=== PATIENT | male | born 1965 | race Caucasian/White ===

== ENCOUNTER → 2022-07-28 | Outpatient (CLI) | payer MEDICARE ==
--- NOTE | 2022-07-28 17:30 | Diagnostic Imaging Report ---
EXAMINATION: Left shoulder 2 or more views HISTORY: Shoulder pain COMPARISON: None available. FINDINGS: The alignment is normal. No fracture is seen. The acromioclavicular and glenohumeral joint spaces are normal. IMPRESSION: 1. No fracture. Dictated by: Dictated on workstation # [id number]
== END ==
LOC: RAD 14:57
PROVIDERS: ATTEND Family Medicine
DX: M25.512 Pain in left shoulder (principal)
CPT/HCPCS: 73030

== ENCOUNTER 2022-09-13 09:45 | Outpatient (RCR) | payer MEDICARE | END 2022-09-20 | disposition home or self-care (01) | PROVIDERS: ATTEND Family Medicine | DX: M25.512 Pain in left shoulder (principal); I10 Essential (primary) hypertension ==

== ENCOUNTER 2022-09-23 10:30 | Outpatient (RCR) | payer MEDICARE | END 2022-10-12 11:05 | disposition home or self-care (01) | PROVIDERS: ATTEND Family Medicine | DX: M25.512 Pain in left shoulder (principal); I10 Essential (primary) hypertension; E11.9 Type 2 diabetes mellitus without complications; Z79.4 Long term (current) use of insulin ==

== ENCOUNTER → 2022-12-15 | Outpatient (CLI) | payer MEDICARE ==
[2022-12-15 14:56] LABS: BASOPHILS # (AUTO) 0.1 10^3/uL (0.0-0.1); BASOPHILS % (AUTO) 1 % (0-10); EOSINOPHILS # (AUTO) 0.1 10^3/uL (0.0-0.3); EOSINOPHILS % (AUTO) 1 % (0-10); HEMATOCRIT 41 % (40-54); HEMOGLOBIN 13.5 g/dL (13.3-17.7); LYMPHOCYTES # (AUTO) 1.9 10^3/uL (1.0-4.0); LYMPHOCYTES % (AUTO) 20 % (12-44); MEAN CORPUSCULAR HEMOGLOBIN 29 pg (25-34); MEAN CORPUSCULAR HGB CONC 33 g/dL (32-36); MEAN CORPUSCULAR VOLUME 88 fL (80-99); MEAN PLATELET VOLUME 10.7 fL (9.0-12.2); MONOCYTES # (AUTO) 0.7 10^3/uL (0.0-1.0); MONOCYTES % (AUTO) 8 % (0-12); NEUTROPHILS # (AUTO) 6.5 10^3/uL (1.8-7.8); NEUTROPHILS % (AUTO) 70 % (42-75); PLATELET COUNT 247 10^3/uL (130-400); WHITE BLOOD COUNT 9.3 10^3/uL (4.3-11.0)
[2022-12-15 14:59] LABS: POTASSIUM 4.2 MMOL/L (3.6-5.0)
[2022-12-15 15:01] LABS: CALCIUM 8.8 MG/DL (8.5-10.1)
[2022-12-15 15:05] LABS: CREATININE SERUM 1.04 MG/DL (0.60-1.30)
[2022-12-15 16:02] LABS: ERYTHROCYTE SEDIMENTATION RATE 34 MM/HR (0-30)
== END ==
LOC: WOUNDCARE 13:13
PROVIDERS: ATTEND Family Medicine
DX: T87.89 Other complications of amputation stump (principal); L97.222 Non-pressure chronic ulcer of left calf with fat layer exposed; L97.512 Non-pressure chronic ulcer of other part of right foot with fat layer exposed; E11.621 Type 2 diabetes mellitus with foot ulcer; E11.622 Type 2 diabetes mellitus with other skin ulcer; E11.65 Type 2 diabetes mellitus with hyperglycemia; E66.01 Morbid (severe) obesity due to excess calories; L03.031 Cellulitis of right toe; E11.52 Type 2 diabetes mellitus with diabetic peripheral angiopathy with gangrene; Z68.41 Body mass index [BMI] 40.0-44.9, adult
CPT/HCPCS: 11042; 80048; 84134; 85025; 85652; 86141; 87070; 87077; 87185; 87186; 87205; A6197; A6212; G0463; 36415

== ENCOUNTER → 2022-12-22 | Outpatient (CLI) | payer MEDICARE | LOC: WOUNDCARE 13:30 | PROVIDERS: ATTEND Family Medicine | DX: I96 Gangrene, not elsewhere classified (principal); T87.89 Other complications of amputation stump; L97.222 Non-pressure chronic ulcer of left calf with fat layer exposed; L97.512 Non-pressure chronic ulcer of other part of right foot with fat layer exposed; E11.621 Type 2 diabetes mellitus with foot ulcer; E11.622 Type 2 diabetes mellitus with other skin ulcer; E11.65 Type 2 diabetes mellitus with hyperglycemia; E66.01 Morbid (severe) obesity due to excess calories; Z68.41 Body mass index [BMI] 40.0-44.9, adult | CPT/HCPCS: 11042; G0463 ==

== ENCOUNTER → 2022-12-27 | Outpatient (CLI) | payer MEDICARE ==
[~2022-12-27] MED LIST: GADOTERATE 0.5 MMOL/ML (CLARISCAN) 20 ML VIAL IV ONE
--- NOTE | 2022-12-27 15:00 | Diagnostic Imaging Report ---
PROCEDURE: MR imaging right lower extremity with and without contrast. TECHNIQUE: Multiplanar, multisequence pre and post contrast-enhanced MR imaging of the right lower extremity was accomplished. INDICATION: Diabetic ulcer of the right great toe. COMPARISON: None. FINDINGS: There is enhancing bone marrow edema of the right great toe distal phalanx. There may be mild T1-weighted hypointensity at the plantar aspect of the tuft. There is enhancing edema about the great toe, particularly plantar to the interphalangeal joint with a soft tissue defect in this location. No rim-enhancing fluid collection is seen. No acute fracture is seen in the imaged right foot. Alignment otherwise appears normal. No joint effusion is seen. There is nonspecific subcutaneous edema at the dorsal forefoot. There is marked generalized muscular atrophy, likely neurogenic. Flexor and extensor tendons appear intact. IMPRESSION: 1. Soft tissue infection and ulceration plantar to the right great toe interphalangeal joint. No rim-enhancing fluid collection. 2. Osteitis of the right great toe distal phalanx with possible early osteomyelitis at the plantar tuft. Dictated by: Dictated on workstation # [id number]
== END ==
LOC: RAD 14:00
PROVIDERS: ATTEND Family Medicine
DX: E11.621 Type 2 diabetes mellitus with foot ulcer (principal); E11.622 Type 2 diabetes mellitus with other skin ulcer; E11.65 Type 2 diabetes mellitus with hyperglycemia; L97.512 Non-pressure chronic ulcer of other part of right foot with fat layer exposed; L97.222 Non-pressure chronic ulcer of left calf with fat layer exposed; E66.01 Morbid (severe) obesity due to excess calories; T87.89 Other complications of amputation stump; L03.031 Cellulitis of right toe; Z68.41 Body mass index [BMI] 40.0-44.9, adult
CPT/HCPCS: 73720

== ENCOUNTER → 2022-12-29 | Outpatient (CLI) | payer MEDICARE | LOC: WOUNDCARE 13:30 | PROVIDERS: ATTEND Family Medicine | DX: L97.222 Non-pressure chronic ulcer of left calf with fat layer exposed (principal); T87.89 Other complications of amputation stump; L97.512 Non-pressure chronic ulcer of other part of right foot with fat layer exposed; E11.621 Type 2 diabetes mellitus with foot ulcer; E11.622 Type 2 diabetes mellitus with other skin ulcer; E11.65 Type 2 diabetes mellitus with hyperglycemia; E66.01 Morbid (severe) obesity due to excess calories; Z68.41 Body mass index [BMI] 40.0-44.9, adult; L03.031 Cellulitis of right toe; B37.2 Candidiasis of skin and nail; E11.52 Type 2 diabetes mellitus with diabetic peripheral angiopathy with gangrene; I96 Gangrene, not elsewhere classified | CPT/HCPCS: 11042; G0463 ==

== ENCOUNTER 2023-01-05 05:47 | Outpatient (CLI) | payer MEDICARE ==
[~2023-01-05] VITALS: Ht 172.7 cm; Wt 117.0 kg
[2023-01-05] MEDS ORDERED: CARB100T48 PO (15:03)
[2023-01-05] MEDS ORDERED: ATOR80TA76 PO (15:03)
[2023-01-05] MEDS ORDERED: TIMO5DRO16 OP (15:04)
[2023-01-05] MEDS ORDERED: PREG200C28 PO (15:04)
[2023-01-05] MEDS ORDERED: EMPA10TA PO (15:04)
[2023-01-05] MEDS ORDERED: MTP25TSR PO (15:04)
[2023-01-05] MEDS ORDERED: LISI1TAB46 PO (15:04)
[2023-01-05] MEDS ORDERED: DULA3PEN SQ (15:04)
[2023-01-05] MEDS ORDERED: METF-397 PO (15:04)
[2023-01-05] MEDS ORDERED: EZET10TA49 PO (15:04)
[2023-01-05] MEDS ORDERED: MELO15TA39 PO (15:04)
[2023-01-05] MEDS ORDERED: DULO30CA49 PO (15:04)
[2023-01-05] MEDS ORDERED: TERB250T88 PO (15:04)
[2023-01-05] MEDS ORDERED: TMSL.4C PO (15:04)
== END 2023-01-05 15:20 | disposition home or self-care (01) ==
LOC: PREOP 05:47
PROVIDERS: ATTEND Surgery
DX: Z01.818 Encounter for other preprocedural examination (principal)

== ENCOUNTER → 2023-01-05 | Outpatient (CLI) | payer MEDICARE ==
[~2023-01-05] MED LIST changes: +ATOR80TA76 PO; +CARB100T48 PO; +DULA3PEN SQ; +DULO30CA49 PO; +EMPA10TA PO; +EZET10TA49 PO; -GADOTERATE 0.5 MMOL/ML (CLARISCAN) 20 ML VIAL IV ONE; +LISI1TAB46 PO; +MELO15TA39 PO; +METF-397 PO; +MTP25TSR PO; +PREG200C28 PO; +TERB250T88 PO; +TIMO5DRO16 OP; +TMSL.4C PO
== END ==
LOC: WOUNDCARE 13:19
PROVIDERS: ATTEND Family Medicine
DX: T87.89 Other complications of amputation stump (principal); L97.222 Non-pressure chronic ulcer of left calf with fat layer exposed; L97.512 Non-pressure chronic ulcer of other part of right foot with fat layer exposed; E11.621 Type 2 diabetes mellitus with foot ulcer; E11.622 Type 2 diabetes mellitus with other skin ulcer; E11.65 Type 2 diabetes mellitus with hyperglycemia; E66.01 Morbid (severe) obesity due to excess calories; Z68.41 Body mass index [BMI] 40.0-44.9, adult; L03.031 Cellulitis of right toe; M86.271 Subacute osteomyelitis, right ankle and foot; B37.2 Candidiasis of skin and nail; E11.52 Type 2 diabetes mellitus with diabetic peripheral angiopathy with gangrene; I96 Gangrene, not elsewhere classified
CPT/HCPCS: 11042; G0463

== ENCOUNTER 2023-01-12 07:08 | Day surgery (SDC) | payer MEDICARE ==
[2023-01-12] VITALS (8 sets, daily range): BP systolic 88–129; BP diastolic 41–95
[~2023-01-12] VITALS: Ht 172.7 cm; Wt 117.0 kg
[2023-01-12] MEDS ORDERED: LIDOCAINE 1% INJ 20 ML VIAL ONE (07:24)
[2023-01-12] MEDS ORDERED: BUPIVACAINE 0.5% 30 ML (SENSORCAINE) VIAL ONE (07:24)
--- NOTE | 2023-01-12 07:55 | Progress Note-Pre Operative ---
Pre-Operative Progress Note Date H&P Reviewed: January 12, 2023 Time H&P Reviewed: 07:46 History & Physical: H&P Reviewed, Patient Examed, No changes noted Pre-Operative Diagnosis: osteomyelitis right great toe JC CARPENTER DO January 12, 2023 07:55
[2023-01-12] MEDS ORDERED: ceFAZolin INJECTION 2,000 MG ONE (08:03)
[2023-01-12] MEDS ORDERED: NS (IVPB) 50 ML ONE (08:03)
[2023-01-12] MEDS ORDERED: MIDAZOLAM 2 MG/2 ML (VERSED) VIAL ONE (08:07)
[2023-01-12] MEDS ORDERED: PROPOFOL INJECTION 50 ML IV ONE (08:07)
[2023-01-12] MEDS ORDERED: BUPIVACAINE 0.5% 30 ML (SENSORCAINE) VIAL INJ ONE (08:42)
[2023-01-12] MEDS ORDERED: LIDOCAINE 1% INJ 20 ML VIAL INJ ONE (08:43)
[2023-01-12] MEDS ORDERED: ceFAZolin INJECTION 2,000 MG in NS (IVPB) 50 ML IV ONE (08:45)
[2023-01-12] MEDS ORDERED: LACTATED RINGERS 1,000 ML IV PRN (08:45)
[2023-01-12] MEDS ORDERED: ACHD5005 PO (08:54)
--- NOTE | 2023-01-12 08:56 | Discharge Inst-Simple/Standard ---
Discharge Inst-Standard Discharge Medications New, Converted or Re-Newed RX: Transmitted to Pharmacy Patient Instructions/Follow Up Plan of Care/Instructions/FU: 2 weeks albino Activity as Tolerated: No Discharge Diet: Regular Diet Other Inst to Patient Follow up Appt: Make appointment for 2 week. Instructions: No lifting greater than 10 pounds. No strenuous activity. May shower in 24 hours, no tub bath or soaking. Use incentive spirometer at home as directed. No Smoking Skin/Wound Care: Keep area clean and dry. Do no soak. Change dressing daily and as needed. Symptoms to Report: Appetite Changes, Extremity Discoloration, Numbness/Tingling, Swelling Increased , Bleeding Excessive, Eyesight Changes, Pain Increased, Urine Color Change, Constipation(Persistent), Fever over 101 degree F, Pain/Pressure in chest, Urinating Difficulty, Cough Up/Vomit Blood, Heart Beat Irreg/Pounding, Pain/Pressure in jaw, Vaginal Bleeding Increase, Cramps in feet or legs, Lightheadedness, Pain/Pressure in shoulder, Diarrhea(Persistent), Memory Changes Suddenly, Questions/Concerns, Weight gain consecutive days, Dizziness/Fainting, Nausea/Vomiting, Shortness of Breath, Weight gain over 2 pounds If questions or concerns contact your physician Or seek help at emergency department. JC CARPENTER DO January 12, 2023 08:56
[2023-01-12] MEDS ORDERED: proPOfol 200 MG/20 ML (DIPRIVAN) VIAL IV ONE (08:57)
--- NOTE | 2023-01-12 09:01 | Progress Note-Post Operative ---
Post-Operative Progess Note Surgeon (s)/Wire Lather (s) Surgeon JC CARPENTER DO Wire Lather: na Pre-Operative Diagnosis osteomyelitis right great toe Post-Operative Diagnosis same Procedure & Operative Findings Date of Procedure 01/12/23 Procedure Performed/Findings right foot block, right great toe amputation Anesthesia Type mac c block Estimated Blood Loss Estimated blood loss (mL): minimal Specimens/Packing Specimens Removed right great toe JC CARPENTER DO January 12, 2023 09:01
--- NOTE | 2023-01-13 18:56 | OPERATIVE REPORT ---
DATE OF SERVICE: 01/12/2023 PREOPERATIVE DIAGNOSIS: Osteomyelitis, right great toe. POSTOPERATIVE DIAGNOSIS: Osteomyelitis, right great toe. PROCEDURE: Right ankle block and right great toe amputation. SURGEON: Jc Mccartney DO FLOOR WORKER: Barrett Berry, medical student. ANESTHESIA: MAC with block. ESTIMATED BLOOD LOSS: Minimal. COMPLICATIONS: None. INDICATIONS: The patient is a 57-year-old male with osteomyelitis of the right great toe. He understands risks and benefits of procedure and wished to proceed. Consent was signed and on chart. DESCRIPTION OF PROCEDURE: The patient was taken to the operating suite, prepped and draped in sterile fashion. Timeout was performed. Right ankle block was performed injecting local anesthetic to the medial and lateral aspects of the ankle and injecting across the dorsum of the foot. Once the anesthetic effect took place, a 15 blade scalpel was used to cut around the great toe circumferentially. Cautery was used to start dividing the subcutaneous tissue, muscle, and tendon and vascular down to the metatarsal head, which the toe was then amputated. The wound was irrigated with copious amounts of irrigation. Hemostasis was achieved. The skin was then closed using 2-0 Prolene in vertical mattress in a simple interrupted fashion. The area was washed and dried and sterile bandage was applied. The patient tolerated the procedure well without complications, taken to recovery room in stable condition. Job ID: [id number] DocumentID: [id number] Dictated Date: 01/13/2023 10:17:01 Pediatric Acute Care Unit Nurse Date: 01/13/2023 18:54:00 Dictated By: JC MCCARTNEY DO MTDD
== END 2023-01-12 10:10 ==
LOC: SDC 07:08
PROVIDERS: ATTEND Surgery
DX: E11.69 Type 2 diabetes mellitus with other specified complication (principal); M86.9 Osteomyelitis, unspecified; E11.40 Type 2 diabetes mellitus with diabetic neuropathy, unspecified; S91.301A Unspecified open wound, right foot, initial encounter; E66.9 Obesity, unspecified; Z68.41 Body mass index [BMI] 40.0-44.9, adult
CPT/HCPCS: 82947; 87081

== ENCOUNTER → 2023-01-19 | Outpatient (CLI) | payer MEDICARE ==
[~2023-01-19] MED LIST changes: +ACHD5005 PO
== END ==
LOC: WOUNDCARE 13:29
PROVIDERS: ATTEND Family Medicine
DX: T81.31XA Disruption of external operation (surgical) wound, not elsewhere classified, initial encounter (principal); L97.222 Non-pressure chronic ulcer of left calf with fat layer exposed; T87.89 Other complications of amputation stump; E11.621 Type 2 diabetes mellitus with foot ulcer; E11.622 Type 2 diabetes mellitus with other skin ulcer; E11.65 Type 2 diabetes mellitus with hyperglycemia; E66.01 Morbid (severe) obesity due to excess calories; Z68.41 Body mass index [BMI] 40.0-44.9, adult; M86.671 Other chronic osteomyelitis, right ankle and foot
CPT/HCPCS: 11042; G0463

== ENCOUNTER → 2023-01-26 | Outpatient (CLI) | payer MEDICARE | LOC: WOUNDCARE 12:58 | PROVIDERS: ATTEND Family Medicine | DX: T87.89 Other complications of amputation stump (principal); E11.621 Type 2 diabetes mellitus with foot ulcer; L97.509 Non-pressure chronic ulcer of other part of unspecified foot with unspecified severity; E11.65 Type 2 diabetes mellitus with hyperglycemia; E66.01 Morbid (severe) obesity due to excess calories; Z68.41 Body mass index [BMI] 40.0-44.9, adult; M86.271 Subacute osteomyelitis, right ankle and foot; T81.31XA Disruption of external operation (surgical) wound, not elsewhere classified, initial encounter; Z91.199 Patient's noncompliance with other medical treatment and regimen due to unspecified reason; E11.52 Type 2 diabetes mellitus with diabetic peripheral angiopathy with gangrene; I96 Gangrene, not elsewhere classified | CPT/HCPCS: 11042; 87070; 87077; 87186; 87205; G0463 ==

== ENCOUNTER → 2023-01-26 | Outpatient (CLI) | payer MEDICARE ==
--- NOTE | 2023-01-26 16:57 | Diagnostic Imaging Report ---
Indication: Great toe amputation. Study performed evaluate for osteomyelitis. Time of Exam: 12:45 PM 3 views right foot were obtained. There are postoperative changes of amputation of the great toe. The remaining phalanges appear to be intact. The metatarsals are intact. No periosteal reaction or bone destruction is seen to suggest osteomyelitis. No soft tissue gas is identified. Midfoot and hindfoot are unremarkable apart from a large plantar calcaneal spur. IMPRESSION: Postoperative changes of great toe amputation. No other significant abnormality is detected. Dictated by: Dictated on workstation # [id number]
== END ==
LOC: RAD 12:31
PROVIDERS: ATTEND Nurse Practitioner
DX: M86.9 Osteomyelitis, unspecified (principal); Z98.890 Other specified postprocedural states
CPT/HCPCS: 73630

== ENCOUNTER → 2023-02-02 | Outpatient (CLI) | payer MEDICARE | LOC: WOUNDCARE 13:24 | PROVIDERS: ATTEND Family Medicine | DX: E11.621 Type 2 diabetes mellitus with foot ulcer (principal); T87.89 Other complications of amputation stump; T81.31XA Disruption of external operation (surgical) wound, not elsewhere classified, initial encounter; E11.65 Type 2 diabetes mellitus with hyperglycemia; E66.01 Morbid (severe) obesity due to excess calories; Z68.41 Body mass index [BMI] 40.0-44.9, adult; M86.271 Subacute osteomyelitis, right ankle and foot; Z91.199 Patient's noncompliance with other medical treatment and regimen due to unspecified reason; E11.52 Type 2 diabetes mellitus with diabetic peripheral angiopathy with gangrene | CPT/HCPCS: 11043; G0463 ==

== ENCOUNTER 2023-02-07 05:30 | Outpatient (CLI) | payer MEDICARE ==
[~2023-02-07] VITALS: Ht 172.7 cm; Wt 117.0 kg
== END 2023-02-07 10:33 ==
LOC: PREOP 05:30
PROVIDERS: ATTEND Surgery
DX: Z01.818 Encounter for other preprocedural examination (principal)

== ENCOUNTER 2023-02-09 09:46 | Day surgery (SDC) | payer MEDICARE ==
[~2023-02-09] VITALS: Ht 172.7 cm; Wt 117.0 kg
[2023-02-09] VITALS (7 sets, daily range): BP systolic 92–120; BP diastolic 52–80
[2023-02-09] MEDS ORDERED: LACTATED RINGERS 1,000 ML IV PRN (10:00)
[2023-02-09] MEDS ORDERED: BUPIVACAINE 0.25% 30 ML (SENSORCAINE) VIAL ONE (10:10)
--- NOTE | 2023-02-09 10:10 | Progress Note-Pre Operative ---
Pre-Operative Progress Note Date H&P Reviewed: Feb 09, 2023 Time H&P Reviewed: 10:08 History & Physical: H&P Reviewed, Patient Examed, No changes noted Pre-Operative Diagnosis: open right foot wound JC CARPENTER DO Feb 09, 2023 10:09
[2023-02-09] MEDS ORDERED: ceFAZolin INJECTION 2,000 MG in NS (IVPB) 50 ML IV ONE (10:15)
[2023-02-09] MEDS ORDERED: BUPIVACAINE 0.25% 30 ML (SENSORCAINE) VIAL INJ ONE (10:21)
[2023-02-09] MEDS ORDERED: MIDAZOLAM 2 MG/2 ML (VERSED) VIAL ONE (11:15)
[2023-02-09] MEDS ORDERED: PROPOFOL INJECTION 50 ML IV ONE (11:21)
--- NOTE | 2023-02-09 12:07 | Anesthesia-General Post-Op ---
MAC Patient Condition Mental Status/LOC: Same as Preop Cardiovascular: Satisfactory Nausea/Vomiting: Absent Respiratory: Satisfactory Pain: Controlled Complications: Absent Post Op Complications Complications None Follow Up Care/Instructions Patient Instructions None needed. Anesthesiology Discharge Order Discharge Order Patient is doing well, no complaints, stable vital signs, no apparent adverse anesthesia problems. No complications reported per nursing. GIOVANNI HUANG CRNA Feb 09, 2023 12:07
--- NOTE | 2023-02-09 13:47 | Discharge Inst-Simple/Standard ---
Discharge Inst-Standard Patient Instructions/Follow Up Plan of Care/Instructions/FU: Sherrill salcedo tomorrow. Activity as Tolerated: No Discharge Diet: Regular Diet Other Inst to Patient Follow up Appt: Sherrill salcedo tomorrow. Instructions: No lifting greater than 10 pounds. No strenuous activity. May shower in 24 hours, no tub bath or soaking. Use incentive spirometer at home as directed. No Smoking Skin/Wound Care: Change dressing daily and as needed. Irrigate with saline and pack with Iodoform gauze. Symptoms to Report: Appetite Changes, Extremity Discoloration, Numbness/Tingling, Swelling Increased, Bleeding Excessive, Eyesight Changes, Pain Increased, Urine Color Change, Constipation(Persistent), Fever over 101 degree F, Pain/Pressure in chest, Urinating Difficulty, Cough Up/Vomit Blood, Heart Beat Irreg/Pounding, P ain/Pressure in jaw, Vaginal Bleeding Increase, Cramps in feet or legs, Lightheadedness, Pain/Pressure in shoulder, Diarrhea(Persistent), Memory Changes Suddenly, Questions/Concerns, Weight gain consecutive days, Dizziness/Fainting, Nausea/Vomiting, Shortness of Breath, Weight gain over 2 pounds If questions or concerns contact your physician Or seek help at emergency department. JC CARPENTER DO Feb 09, 2023 13:47
--- NOTE | 2023-02-09 13:50 | Progress Note-Post Operative ---
Post-Operative Progess Note Surgeon (s)/Vp Customer Service (s) Surgeon JC CARPENTER DO Vp Customer Service: na Pre-Operative Diagnosis open right foot wound Post-Operative Diagnosis same Procedure & Operative Findings Date of Procedure 02/09/23 Procedure Performed/Findings right ankle block, debridement right foot wound cautery skin and subcutaneous tissue Anesthesia Type mac c block Estimated Blood Loss Estimated blood loss (mL): minimal Specimens/Packing Specimens Removed skin and subcutaneous tissue JC CARPENTER DO Feb 09, 2023 13:50
--- NOTE | 2023-02-10 03:48 | OPERATIVE REPORT ---
DATE OF SERVICE: 02/09/2023 PREOPERATIVE DIAGNOSIS: Open wound, right foot. POSTOPERATIVE DIAGNOSIS: Open wound, right foot. PROCEDURE: Right ankle block and debridement of skin and subcutaneous tissue with cautery of the right foot wound, 3.5 x 3 x 2 cm. SURGEON: Jc Mccartney DO ANESTHESIA: MAC with right foot block. ESTIMATED BLOOD LOSS: Minimal. SURGEON: Jc Mccartney DO INDICATIONS: The patient is a 57-year-old male who underwent a right great toe amputation previously. The wound appears infected and needs debridement and all other indicated procedures. The patient understands risks and benefits and wished to proceed. Consent was signed in chart. DESCRIPTION OF PROCEDURE: The patient was taken to the operating suite where he was prepped and draped in sterile fashion. Timeout was performed. Ankle block was performed injecting local anesthetic, the medial and lateral aspect just posterior to the medial and lateral malleolus and also injecting local anesthetic fanning it out over the dorsum of the foot. Cautery was then used to cut through skin and subcutaneous tissue, removing the necrotic and infected-appearing skin and subcutaneous tissue. Overall dimensions 3.5 x 3 x 2 cm. Hemostasis was achieved. IrriSept was then used to irrigate the wound. This was left in for one minute and then it was irrigated with saline. No other infected tissues apparent. The wound was then packed with iodoform. [ ] also noting that the first metatarsal head had normal appearance. Prior to antibiotics, irrigation and culture was obtained. The patient then had the sterile bandages applied and was taken the recovery room in stable condition. Job ID: [id number] DocumentID: [id number] Dictated Date: 02/09/2023 23:13:57 Fleshing Machine Operator Date: 02/10/2023 03:46:00 Dictated By: JC MCCARTNEY DO
== END 2023-02-09 13:10 ==
LOC: SDC 09:46
PROVIDERS: ATTEND Surgery
DX: T81.89XA Other complications of procedures, not elsewhere classified, initial encounter (principal); S91.301A Unspecified open wound, right foot, initial encounter; Z28.310 Unvaccinated for COVID-19; Y83.8 Other surgical procedures as the cause of abnormal reaction of the patient, or of later complication, without mention of misadventure at the time of the procedure
CPT/HCPCS: 82947; 87070; 87075; 87077; 87081; 87205

== ENCOUNTER 2023-02-10 21:02 | Emergency (ER) | payer MEDICARE ==
[~2023-02-10] VITALS: Ht 172.7 cm; Wt 116.6 kg
--- NOTE | 2023-02-10 22:06 | ED Lower Extremity ---
General Chief Complaint: Post OP Complications/Pain Stated Complaint: POST OP WOUND BLEEDING Nursing Triage Note: PT AMB TO TRIAGE W C/O POST-OP WOUND BLEEDING. PT HAD WOUND DEBRIDEMENT YESTERDAY, RIGHT GREAT TOE AMPUTATION DECEMBER 2022. WOUND CHANGE AT DR. CARPENTER'S OFFICE THIS AM. PT REPORTS WOUND STARTED BLEEDING TONIGHT AND HE'S UNABLE TO CONTROL IT. PT A&OX4, DENIES PAIN. Source: patient, family () Exam Limitations: no limitations (GAY DÍAZ) History of Present Illness Date Seen by Provider: Feb 10, 2023 Time Seen by Provider: 21:30 Initial Comments Our patient is a 57-year-old man who presented to the emergency department due to bleeding from a right foot surgical wound. He states that his right great toe was amputated in December after antibiotic treatment for an infection failed. Yesterday, he underwent wound debridement by Dr. Carpenter here at the hospital. This morning his wound was re-dressed by a nurse and he and his noticed that it was bleeding this afternoon, soaking through the dressing that had been applied earlier. His then changed the dressing once more, more tightly than this morning, but the wound continued to bleed, soaking through the bandages. He notes no pain, recent illnesses, or fever but does note that he has been more fatigued for the past few weeks. He denies any history of clotting disorders, anemia, or vitamin deficiencies and notes no previous occurrence of significant post-op bleeding. He indicates that, due to his diabetic neuropathy, he has no feeling in his right leg from the mid-baptiste distally. Location Injury Occurred: Right great toe surgical site Onset: this afternoon Severity: mild Method of Injury: other (post-surgical) (GAY DÍAZ) Allergies and Home Medications Allergies Coded Allergies: fentanyl (Verified Allergy, Unknown, SCRATCHING, 02/07/23) tramadol (Verified Allergy, Unknown, PALPITATIONS, 02/07/23) Patient Home Medication List Home Medication List Reviewed: Yes (GAY DÍAZ) Atorvastatin Calcium (Atorvastatin Calcium) 80 Mg Tablet, 80 MG PO DAILY, (Reported) Entered as Reported by: MAX TORRES on 01/05/23 150 Carbamazepine (Carbamazepine ER) 100 Mg Tab.er.12h, 100 MG PO BID, (Reported) Entered as Reported by: MAX TORRES on 01/05/23 1503 Dulaglutide (Trulicity) 3 Mg/0.5 Ml Pen.injctr, 3 MG SQ WEEK, (Reported) Entered as Reported by: MAX TORRES on 01/05/23 150 Duloxetine HCl (Duloxetine HCl) 30 Mg Capsule.dr, 30 MG PO DAILY, (Reported) Entered as Reported by: MAX TORRES on 01/05/23 150 Empagliflozin (Jardiance) 10 Mg Tablet, PO DAILY, (Reported) Entered as Reported by: MAX TORRES on 01/05/23 150 Ezetimibe (Ezetimibe) 10 Mg Tablet, 10 MG PO HS, (Reported) Entered as Reported by: MAX TORRES on 01/05/23 150 Hydrocodone/Acetaminophen (Hydrocodone-Acetamin 5-325 mg) 5 Mg-325 Mg Tablet, 1 EACH PO Q4H PRN for PAIN-MODERATE (5-7) Prescribed by: JC CARPENTER on 01/12/23 0855 Lisinopril/Hydrochlorothiazide (Lisinopril-Hctz 20-12.5 mg Tab) 20 Mg-12.5 Mg Tablet, 1 EACH PO DAILY, (Reported) Entered as Reported by: MAX TORRES on 01/05/23 150 Metformin HCl (Metformin HCl) 500 Mg Tablet, 500 MG PO BID, (Reported) Entered as Reported by: MAX TORRES on 01/05/23 150 Metoprolol Succinate (Metoprolol Succinate) 25 Mg Tab.er.24h, 25 MG PO DAILY, (Reported) Entered as Reported by: MAX TORRES on 01/05/23 150 Pregabalin (Pregabalin) 200 Mg Capsule, 200 MG PO BID WITH MEALS, (Reported) Entered as Reported by: MAX TORRES on 01/05/23 150 Tamsulosin HCl (Flomax) 0.4 Mg Cap, 0.4 MG PO DAILY, (Reported) Entered as Reported by: MAX TORRES on 01/05/23 150 Terbinafine HCl (Terbinafine HCl) 250 Mg Tablet, 250 MG PO UD, (Reported) Entered as Reported by: MAX TORRES on 01/05/23 150 Timolol Maleate (Timolol Maleate 0.5%) 0.5 % Drops, 1 DROP OP UD, (Reported) Entered as Reported by: MAX TORRES on 01/05/23 1504 Review of Systems Constitutional: no symptoms reported; No chills, No fever, No weakness EENTM: no symptoms reported Respiratory: no symptoms reported; No cough, No short of breath Cardiovascular: no symptoms reported Gastrointestinal: no symptoms reported Genitourinary: no symptoms reported Musculoskeletal: back pain (chronic) Skin: see HPI Psychiatric/Neurological: No Symptoms Reported (GAY DÍAZ) All Other Systems Reviewed Negative Unless Noted: Yes (GAY DÍAZ) Past Rwlozdp-Asintu-Axqklo Hx Patient Social History Tobacco Use?: No Use of E-Cig and/or Vaping dev: No Substance use?: No Alcohol Use?: No (GAY DÍAZ) Immunizations Up To Date Tetanus Booster (TDap): More than 5yrs First/Initial COVID19 Vaccinat: NONE Second COVID19 Vaccination Kumar: NONE Third COVID19 Vaccination Date: NONE (GAY DÍAZ) Seasonal Allergies Seasonal Allergies: Yes (GAY DÍAZ) Past Medical History Surgeries: Yes (INGUINAL HERNIA REPAIR, LBKA) Abdominal, Amputation, Vasectomy Respiratory: Yes Sleep Apnea Currently Using CPAP: No Currently Using BIPAP: No Cardiac: No High Cholesterol, Hypertension Neurological: Yes (DVA-DEEP VEIN ANOMALY) Headaches /Migraines, Seizure Disorder Sexually Transmitted Disease: No Genitourinary: Yes Kidney Stones Gastrointestinal: Yes (INGUINAL HERNIA) Musculoskeletal: Yes (BACK/NECK) Amputee, Arthritis, Chronic Back Pain Endocrine: Yes Diabetes, Non-Insulin dep HEENT: Yes (ITCHY EARS) Loss of Vision: Denies Hearing Impairment: Hard of Hearing Cancer: No Psychosocial: Yes PTSD Integumentary: No Blood Disorders: No Adverse Reaction/Blood Tranf: No (GAY DÍAZ) Physical Exam Vital Signs Vital Signs - First Documented 02/10/23 21:24 Temp 37.2 Pulse 78 Resp 20 B/P (MAP) 117/68 (84) Pulse Ox 94 O2 Delivery Room Air (LINNEA CALDERON MD) Vital Signs Capillary Refill : Less Than 3 Seconds (GAY DÍAZ) Height, Weight, BMI Height: '" Weight: lbs. oz. kg; 39.00 BMI Method: General Appearance: WD/WN, no apparent distress HEENT: PERRL/EOMI Neck: normal inspection Cardiovascular: regular rate, rhythm, no gallop, no JVD, no murmur Respiratory: chest non-tender, lungs clear, normal breath sounds, no respiratory distress, no accessory muscle use Legs: right leg non-tender Ankles: right ankle non-tender, right ankle ecchymosis, right ankle swelling (1+) Feet: right foot abrasions/lacerations (Right foot wound does not appear infected and is not actively bleeding at the time of examination), right foot ecchymosis, right foot swelling (1+) Neurologic/Tendon: sensory deficit (Right leg is numb from the mid-baptiste distally) Neurologic/Psychiatric: alert, normal mood/affect, oriented x 3 (GAY DÍAZ) Progress/Results/Core Measures Results/Orders Vital Signs/I&O 02/10/23 21:24 Temp 37.2 Pulse 78 Resp 20 B/P (MAP) 117/68 (84) Pulse Ox 94 O2 Delivery Room Air (LINNEA CALDERON MD) Blood Pressure Mean: 84 Progress Progress Note : Time: 22:30 Progress Note At the time of the exam the wound was no longer actively bleeding. Dr. Calderon applied zeroform to the wound as well as re-dressed it with Curlex gauze. The packing was not replaced, as this had been done earlier today. The patient was instructed to elevate the right leg as much as possible as well as to avoid walking on the foot for the next few days. Instructions were given to update Dr. Carpenter via phone call on Monday if bleeding continues. (GAY DÍAZ) Departure Impression Primary Impression: Postoperative wound hemorrhage Disposition: 01 HOME, SELF-CARE Condition: Stable Departure-Patient Inst. Decision time for Depature: 22:17 (LINNEA CALDERON MD) Referrals: STANLEY HANKINS MD (PCP) Primary Care Physician IAN REZA APRN (Family) Primary Care Physician Patient Instructions: Wound Care ED Add. Discharge Instructions: Avoid walking on your foot for the next couple of days. Elevate toward the level of your heart is much as possible, especially if bleeding returns. If bleeding does return, you may apply gentle pressure to the surface of the wound with sterile gauze in addition to elevation. Continue performing wound care and dressing changes as instructed. You may use the Xeroform nonstick gauze provided from the ER to help prevent dressing from sticking to the wound or packing. When removing packing and dressing, do so very carefully so as to not disrupt any clotting under the packing or dressing. If the dressing or packing does not easily lift off the wound, you may moisten it with the sterile saline flushes provided and let it sit for a few minutes before attempting to remove the dressing materials. If you have further significant bleeding problems despite following these instructions, you may return to the emergency room. Otherwise, follow-up with Tracy Carpenter next week with a phone call on Monday. GAY DÍAZ Feb 10, 2023 22:05 LINNEA CALDERON MD Feb 10, 2023 22:19
[2023-02-10 22:29] VITALS: BP 117/65
== END 2023-02-10 22:29 | disposition home or self-care (01) ==
LOC: EDUNIT# 21:02 → ER 21:04
DX: M96.830 Postprocedural hemorrhage of a musculoskeletal structure following a musculoskeletal system procedure (principal); E11.40 Type 2 diabetes mellitus with diabetic neuropathy, unspecified; Z89.411 Acquired absence of right great toe; Z28.310 Unvaccinated for COVID-19
CPT/HCPCS: 99281

== ENCOUNTER → 2023-02-17 | Outpatient (CLI) | payer MEDICARE | LOC: WOUNDCARE 09:56 | PROVIDERS: ATTEND Family Medicine | DX: T87.89 Other complications of amputation stump (principal); T81.31XA Disruption of external operation (surgical) wound, not elsewhere classified, initial encounter; E11.621 Type 2 diabetes mellitus with foot ulcer; E11.65 Type 2 diabetes mellitus with hyperglycemia; E66.01 Morbid (severe) obesity due to excess calories; Z68.41 Body mass index [BMI] 40.0-44.9, adult; L97.509 Non-pressure chronic ulcer of other part of unspecified foot with unspecified severity; M86.271 Subacute osteomyelitis, right ankle and foot; Z91.199 Patient's noncompliance with other medical treatment and regimen due to unspecified reason; E11.52 Type 2 diabetes mellitus with diabetic peripheral angiopathy with gangrene; I96 Gangrene, not elsewhere classified | CPT/HCPCS: 11044; G0463 ==

== ENCOUNTER → 2023-02-24 | Outpatient (CLI) | payer MEDICARE | LOC: WOUNDCARE 09:56 | PROVIDERS: ATTEND Family Medicine | DX: I96 Gangrene, not elsewhere classified (principal); T87.89 Other complications of amputation stump; T81.31XA Disruption of external operation (surgical) wound, not elsewhere classified, initial encounter; E11.621 Type 2 diabetes mellitus with foot ulcer; E11.65 Type 2 diabetes mellitus with hyperglycemia; E66.01 Morbid (severe) obesity due to excess calories; M86.271 Subacute osteomyelitis, right ankle and foot; Z68.41 Body mass index [BMI] 40.0-44.9, adult | CPT/HCPCS: 11042; 11045; 97605; G0463 ==

== ENCOUNTER → 2023-03-03 | Outpatient (CLI) | payer MEDICARE | LOC: WOUNDCARE 09:57 | PROVIDERS: ATTEND Family Medicine | DX: T87.89 Other complications of amputation stump (principal); E11.621 Type 2 diabetes mellitus with foot ulcer; L97.509 Non-pressure chronic ulcer of other part of unspecified foot with unspecified severity; E66.01 Morbid (severe) obesity due to excess calories; Z68.41 Body mass index [BMI] 40.0-44.9, adult; M86.271 Subacute osteomyelitis, right ankle and foot; T81.31XA Disruption of external operation (surgical) wound, not elsewhere classified, initial encounter; E11.52 Type 2 diabetes mellitus with diabetic peripheral angiopathy with gangrene; I96 Gangrene, not elsewhere classified | CPT/HCPCS: 11043; 97605; G0463 ==

== ENCOUNTER → 2023-03-15 | Outpatient (CLI) | payer MEDICARE ==
[2023-03-15 13:29] LABS: BASOPHILS # (AUTO) 0.1 10^3/uL (0.0-0.1); BASOPHILS % (AUTO) 1 % (0-10); EOSINOPHILS # (AUTO) 0.2 10^3/uL (0.0-0.3); EOSINOPHILS % (AUTO) 1 % (0-10); HEMATOCRIT 40 % (40-54); LYMPHOCYTES # (AUTO) 2.5 10^3/uL (1.0-4.0); LYMPHOCYTES % (AUTO) 24 % (12-44); MEAN CORPUSCULAR HEMOGLOBIN 28 pg (25-34); MEAN CORPUSCULAR HGB CONC 32 g/dL (32-36); MEAN CORPUSCULAR VOLUME 86 fL (80-99); MEAN PLATELET VOLUME 10.5 fL (9.0-12.2); MONOCYTES % (AUTO) 9 % (0-12); NEUTROPHILS # (AUTO) 6.8 10^3/uL (1.8-7.8); NEUTROPHILS % (AUTO) 65 % (42-75); PLATELET COUNT 266 10^3/uL (130-400); WHITE BLOOD COUNT 10.5 10^3/uL (4.3-11.0)
[2023-03-15 13:48] LABS: ALBUMIN 3.8 GM/DL (3.2-4.5); BILIRUBIN,TOTAL 0.6 MG/DL (0.1-1.0); CALCIUM 9.3 MG/DL (8.5-10.1); CREATININE SERUM 1.13 MG/DL (0.60-1.30); POTASSIUM 4.1 MMOL/L (3.6-5.0)
== END ==
LOC: WOUNDCARE 12:31
PROVIDERS: ATTEND Family Medicine
DX: E11.65 Type 2 diabetes mellitus with hyperglycemia (principal); T81.31XA Disruption of external operation (surgical) wound, not elsewhere classified, initial encounter; T87.89 Other complications of amputation stump; E11.621 Type 2 diabetes mellitus with foot ulcer; E66.01 Morbid (severe) obesity due to excess calories; M86.271 Subacute osteomyelitis, right ankle and foot; E11.52 Type 2 diabetes mellitus with diabetic peripheral angiopathy with gangrene; Z68.41 Body mass index [BMI] 40.0-44.9, adult
CPT/HCPCS: 11042; 80053; 83036; 85025; 97605; G0463; 36415

== ENCOUNTER → 2023-03-24 | Outpatient (CLI) | payer MEDICARE | LOC: WOUNDCARE 09:54 | PROVIDERS: ATTEND Family Medicine | DX: T87.89 Other complications of amputation stump (principal); E11.621 Type 2 diabetes mellitus with foot ulcer; E11.65 Type 2 diabetes mellitus with hyperglycemia; E66.01 Morbid (severe) obesity due to excess calories; Z68.41 Body mass index [BMI] 40.0-44.9, adult; M86.271 Subacute osteomyelitis, right ankle and foot; T81.31XA Disruption of external operation (surgical) wound, not elsewhere classified, initial encounter; E11.52 Type 2 diabetes mellitus with diabetic peripheral angiopathy with gangrene; I96 Gangrene, not elsewhere classified; L97.509 Non-pressure chronic ulcer of other part of unspecified foot with unspecified severity | CPT/HCPCS: 11042; 97605; G0463 ==

== ENCOUNTER → 2023-03-31 | Outpatient (CLI) | payer MEDICARE | LOC: WOUNDCARE 10:00 | PROVIDERS: ATTEND Family Medicine | DX: T87.89 Other complications of amputation stump (principal); E11.621 Type 2 diabetes mellitus with foot ulcer; E11.65 Type 2 diabetes mellitus with hyperglycemia; E66.01 Morbid (severe) obesity due to excess calories; T81.31XA Disruption of external operation (surgical) wound, not elsewhere classified, initial encounter; M86.271 Subacute osteomyelitis, right ankle and foot; E11.52 Type 2 diabetes mellitus with diabetic peripheral angiopathy with gangrene; Z68.41 Body mass index [BMI] 40.0-44.9, adult | CPT/HCPCS: 11042; 97605; A6234; G0463 ==

== ENCOUNTER → 2023-04-07 | Outpatient (CLI) | payer MEDICARE | LOC: WOUNDCARE 09:54 | PROVIDERS: ATTEND Family Medicine | DX: E11.621 Type 2 diabetes mellitus with foot ulcer (principal); T87.89 Other complications of amputation stump; T81.31XA Disruption of external operation (surgical) wound, not elsewhere classified, initial encounter; E11.65 Type 2 diabetes mellitus with hyperglycemia; E66.01 Morbid (severe) obesity due to excess calories; M86.271 Subacute osteomyelitis, right ankle and foot; E11.52 Type 2 diabetes mellitus with diabetic peripheral angiopathy with gangrene | CPT/HCPCS: 11042; 97605; G0463 ==

== ENCOUNTER → 2023-04-10 | Outpatient (CLI) | payer MEDICARE | LOC: WOUNDCARE 07:59 | PROVIDERS: ATTEND Family Medicine | DX: T81.31XA Disruption of external operation (surgical) wound, not elsewhere classified, initial encounter (principal); E11.621 Type 2 diabetes mellitus with foot ulcer; I10 Essential (primary) hypertension; E11.52 Type 2 diabetes mellitus with diabetic peripheral angiopathy with gangrene; E11.40 Type 2 diabetes mellitus with diabetic neuropathy, unspecified | CPT/HCPCS: 97605; G0463 ==

== ENCOUNTER → 2023-04-12 | Outpatient (CLI) | payer MEDICARE | LOC: WOUNDCARE 07:57 | PROVIDERS: ATTEND Family Medicine | DX: I96 Gangrene, not elsewhere classified (principal); T81.31XA Disruption of external operation (surgical) wound, not elsewhere classified, initial encounter; I10 Essential (primary) hypertension; E11.40 Type 2 diabetes mellitus with diabetic neuropathy, unspecified; Z89.421 Acquired absence of other right toe(s) | CPT/HCPCS: 97605; G0463 ==

== ENCOUNTER → 2023-04-14 | Outpatient (CLI) | payer MEDICARE | LOC: WOUNDCARE 08:01 | PROVIDERS: ATTEND Family Medicine | DX: T87.89 Other complications of amputation stump (principal); E11.621 Type 2 diabetes mellitus with foot ulcer; E11.65 Type 2 diabetes mellitus with hyperglycemia; E66.01 Morbid (severe) obesity due to excess calories; Z68.41 Body mass index [BMI] 40.0-44.9, adult; T81.31XA Disruption of external operation (surgical) wound, not elsewhere classified, initial encounter; M86.271 Subacute osteomyelitis, right ankle and foot; E11.52 Type 2 diabetes mellitus with diabetic peripheral angiopathy with gangrene; I96 Gangrene, not elsewhere classified | CPT/HCPCS: 11042; 87070; 87077; 87205; 97605; G0463; 87186 ==

== ENCOUNTER → 2023-04-17 | Outpatient (CLI) | payer MEDICARE | LOC: WOUNDCARE 08:03 | PROVIDERS: ATTEND Family Medicine | DX: T87.89 Other complications of amputation stump (principal); E11.621 Type 2 diabetes mellitus with foot ulcer | CPT/HCPCS: 97605; G0463 ==

== ENCOUNTER → 2023-04-19 | Outpatient (CLI) | payer MEDICARE | LOC: WOUNDCARE 08:01 | PROVIDERS: ATTEND Family Medicine | DX: S81.801A Unspecified open wound, right lower leg, initial encounter (principal); X58.XXXA Exposure to other specified factors, initial encounter; Z89.421 Acquired absence of other right toe(s) | CPT/HCPCS: 97605; G0463 ==

== ENCOUNTER → 2023-04-20 | Outpatient (RCR) | payer MEDICARE | END | disposition home or self-care (01) | LOC: WOUNDCARE 04-10 07:57 | PROVIDERS: ATTEND Family Medicine | DX: E11.622 Type 2 diabetes mellitus with other skin ulcer (principal); E11.65 Type 2 diabetes mellitus with hyperglycemia; E66.01 Morbid (severe) obesity due to excess calories; Z68.41 Body mass index [BMI] 40.0-44.9, adult; M86.271 Subacute osteomyelitis, right ankle and foot; T81.31XA Disruption of external operation (surgical) wound, not elsewhere classified, initial encounter; T87.89 Other complications of amputation stump | CPT/HCPCS: 82947; G0277; 99183; 99212 ==

== ENCOUNTER → 2023-04-21 | Outpatient (CLI) | payer MEDICARE ==
[~2023-04-21] MED LIST changes: -PREG200C28 PO; +PREG200C29 PO
== END ==
LOC: WOUNDCARE 08:01
PROVIDERS: ATTEND Family Medicine
DX: T81.31XA Disruption of external operation (surgical) wound, not elsewhere classified, initial encounter (principal); T87.89 Other complications of amputation stump; I96 Gangrene, not elsewhere classified; E11.621 Type 2 diabetes mellitus with foot ulcer; E11.65 Type 2 diabetes mellitus with hyperglycemia; M86.271 Subacute osteomyelitis, right ankle and foot; B95.1 Streptococcus, group B, as the cause of diseases classified elsewhere; B96.5 Pseudomonas (aeruginosa) (mallei) (pseudomallei) as the cause of diseases classified elsewhere; E66.01 Morbid (severe) obesity due to excess calories; Z68.41 Body mass index [BMI] 40.0-44.9, adult
CPT/HCPCS: 11042; 97605; G0463

== ENCOUNTER → 2023-04-25 | Outpatient (CLI) | payer MEDICARE ==
[~2023-04-25] MED LIST changes: +PREG200C28 PO; -PREG200C29 PO
== END ==
LOC: WOUNDCARE 08:01
PROVIDERS: ATTEND Family Medicine
DX: E11.622 Type 2 diabetes mellitus with other skin ulcer (principal); L97.909 Non-pressure chronic ulcer of unspecified part of unspecified lower leg with unspecified severity
CPT/HCPCS: 97605; G0463

== ENCOUNTER → 2023-04-28 | Outpatient (CLI) | payer MEDICARE | LOC: WOUNDCARE 08:01 | PROVIDERS: ATTEND Family Medicine | DX: T87.89 Other complications of amputation stump (principal); E11.621 Type 2 diabetes mellitus with foot ulcer; E11.65 Type 2 diabetes mellitus with hyperglycemia; E66.01 Morbid (severe) obesity due to excess calories; Z68.41 Body mass index [BMI] 40.0-44.9, adult; T81.31XA Disruption of external operation (surgical) wound, not elsewhere classified, initial encounter; M86.271 Subacute osteomyelitis, right ankle and foot; B95.1 Streptococcus, group B, as the cause of diseases classified elsewhere; B96.5 Pseudomonas (aeruginosa) (mallei) (pseudomallei) as the cause of diseases classified elsewhere; L97.509 Non-pressure chronic ulcer of other part of unspecified foot with unspecified severity; E11.52 Type 2 diabetes mellitus with diabetic peripheral angiopathy with gangrene; I96 Gangrene, not elsewhere classified | CPT/HCPCS: 11042; 97605; G0463 ==

== ENCOUNTER → 2023-05-01 | Outpatient (CLI) | payer MEDICARE ==
[~2023-05-01] MED LIST changes: -PREG200C28 PO; +PREG200C29 PO
== END ==
LOC: WOUNDCARE 07:58
PROVIDERS: ATTEND Family Medicine
DX: T87.89 Other complications of amputation stump (principal); T81.31XA Disruption of external operation (surgical) wound, not elsewhere classified, initial encounter; E11.621 Type 2 diabetes mellitus with foot ulcer; E11.65 Type 2 diabetes mellitus with hyperglycemia; M86.271 Subacute osteomyelitis, right ankle and foot; B95.1 Streptococcus, group B, as the cause of diseases classified elsewhere; B96.5 Pseudomonas (aeruginosa) (mallei) (pseudomallei) as the cause of diseases classified elsewhere; E66.01 Morbid (severe) obesity due to excess calories; Z68.41 Body mass index [BMI] 40.0-44.9, adult
CPT/HCPCS: 97605; G0463

== ENCOUNTER → 2023-05-03 | Outpatient (CLI) | payer MEDICARE ==
[~2023-05-03] MED LIST changes: +PREG200C28 PO; -PREG200C29 PO
== END ==
LOC: WOUNDCARE 08:01
PROVIDERS: ATTEND Family Medicine
DX: E11.622 Type 2 diabetes mellitus with other skin ulcer (principal); S81.801A Unspecified open wound, right lower leg, initial encounter
CPT/HCPCS: 97605; G0463

== ENCOUNTER → 2023-05-08 | Outpatient (CLI) | payer MEDICARE | LOC: WOUNDCARE 08:01 | PROVIDERS: ATTEND Family Medicine | DX: T87.89 Other complications of amputation stump (principal); E11.621 Type 2 diabetes mellitus with foot ulcer; L97.509 Non-pressure chronic ulcer of other part of unspecified foot with unspecified severity; E11.65 Type 2 diabetes mellitus with hyperglycemia; E66.01 Morbid (severe) obesity due to excess calories; Z68.41 Body mass index [BMI] 40.0-44.9, adult; T81.31XA Disruption of external operation (surgical) wound, not elsewhere classified, initial encounter; M86.271 Subacute osteomyelitis, right ankle and foot; B95.1 Streptococcus, group B, as the cause of diseases classified elsewhere; B96.5 Pseudomonas (aeruginosa) (mallei) (pseudomallei) as the cause of diseases classified elsewhere; E11.52 Type 2 diabetes mellitus with diabetic peripheral angiopathy with gangrene; I96 Gangrene, not elsewhere classified | CPT/HCPCS: 11044; 85652; 86141; 87070; 87205; G0463; 36415 ==

== ENCOUNTER → 2023-05-10 | Outpatient (CLI) | payer MEDICARE ==
[~2023-05-10] MED LIST changes: +GADOTERATE 0.5 MMOL/ML (CLARISCAN) 20 ML VIAL IV ONE
--- NOTE | 2023-05-10 13:16 | Diagnostic Imaging Report ---
PROCEDURE: MR imaging right lower extremity with and without contrast. TECHNIQUE: Multiplanar, multisequence pre and post contrast-enhanced MR imaging of the right lower extremity was accomplished. INDICATION: Status post amputation. Persistent ulceration near the great toe. EXAMINATION: Right lower extremity MRI with and without contrast 05/10/2023 COMPARISON: 12/27/2022 FINDINGS: Interval changes of amputation noted through the distal one 3rd of the 1st metatarsal: There is diffuse T2 hyperintensity within the much of the residual metatarsal with associated hypointensity on T1-weighted imaging. Enhancement of the region is noted consistent with osteomyelitis. Diffuse heterogeneity and soft tissue prominence surrounds the post-amputation site and residual 1st metatarsal worsened since previous imaging with likely edema and/or cellulitis present. There is a more focal collection of abnormality seen along the plantar surface of the great toe at the level of the distal residual metatarsal. This contains internal areas of heterogeneous hypointensity on T1 and T2-weighted imaging possibly developing calcifications although not seen on recent radiograph's. Postoperative change is another possibility. Peripheral enhancement is seen with mild central fluid but not a drainable amount of fluid appreciated. Abnormality measures 1.1 x 1.9 x 0.8 cm in size. A similar smaller process is seen in the plantar surface of the foot at the level of the 2nd metatarsal phalangeal joint space. Diffuse phlegmonous change at the post-amputation site is noted. Linear hypointensity along the volar aspect of the residual 1st metatarsal nonspecific perhaps focal hemosiderin or scar formation. The flexor tendon along the plantar aspect of the 1st metatarsal appears blunted with its visualized distal tip at the level of the mid 1st metatarsal. More proximally is diffusely enlarged and hyperintense consistent with tenosynovitis. Remaining visualized tendons intact. Abnormal signal intensity seen within the sesamoids at the 1st metatarsal level suggesting osteomyelitis. There is hyperintensity within the mid 3rd metatarsal which is new since the previous examination. No enhancement of the region is noted. Along the proximal border of the abnormal signal intensity a more focal questioned lesion is noted. Heterogeneous peripheral and septation enhancement noted. This is more pronounced more diffuse than on previous examination. No displaced fractures identified. IMPRESSION: 1. Findings consistent with osteomyelitis of the mid and distal 1st metatarsal and adjacent sesamoids. Diffuse surrounding phlegmonous change noted. 2. Nonspecific heterogeneous collection plantar surface of the residual 1st metatarsal. This could represent phlegmonous change or an early abscess but no drainable fluid is appreciated. A smaller less discrete process seen overlying the plantar aspect of the 2nd metatarsal phalangeal joint level. 3. Abnormal findings towards the base of the 3rd metatarsal with the proximal aspect stable from previous imaging perhaps a small osseous lesion nonspecific. Follow-up recommended. New edema is seen within the more distal 3rd metatarsal and could be reactive with an underlying stress fracture not excluded. CT imaging could provide better characterization of these abnormalities as clinically indicated. 4. Retracted tear of the flexor tendon at the great toe with tendinosis in the more proximal residual visualized tendon. Dictated by: Dictated on workstation # [id number]
== END ==
LOC: RAD 07:52
PROVIDERS: ATTEND Family Medicine
DX: S96.011A Strain of muscle and tendon of long flexor muscle of toe at ankle and foot level, right foot, initial encounter (principal); M76.891 Other specified enthesopathies of right lower limb, excluding foot; M86.271 Subacute osteomyelitis, right ankle and foot; E11.621 Type 2 diabetes mellitus with foot ulcer; E11.65 Type 2 diabetes mellitus with hyperglycemia; T87.89 Other complications of amputation stump; E66.01 Morbid (severe) obesity due to excess calories; T81.31XA Disruption of external operation (surgical) wound, not elsewhere classified, initial encounter; B95.1 Streptococcus, group B, as the cause of diseases classified elsewhere; B96.5 Pseudomonas (aeruginosa) (mallei) (pseudomallei) as the cause of diseases classified elsewhere; Z68.41 Body mass index [BMI] 40.0-44.9, adult; R60.9 Edema, unspecified
CPT/HCPCS: 73720

== ENCOUNTER 2023-05-19 08:00 | Outpatient (RCR) | payer MEDICARE ==
[~2023-05-19 08:00] MED LIST changes: -PREG200C28 PO; +PREG200C29 PO
== END 2023-05-20 | disposition home or self-care (01) ==
LOC: WOUNDCARE 08:00
PROVIDERS: ATTEND Family Medicine
DX: E11.621 Type 2 diabetes mellitus with foot ulcer (principal); E11.65 Type 2 diabetes mellitus with hyperglycemia; E66.01 Morbid (severe) obesity due to excess calories; M86.271 Subacute osteomyelitis, right ankle and foot; T87.89 Other complications of amputation stump; T81.31XA Disruption of external operation (surgical) wound, not elsewhere classified, initial encounter; B95.1 Streptococcus, group B, as the cause of diseases classified elsewhere; B96.5 Pseudomonas (aeruginosa) (mallei) (pseudomallei) as the cause of diseases classified elsewhere; E11.52 Type 2 diabetes mellitus with diabetic peripheral angiopathy with gangrene
CPT/HCPCS: 82947; G0277; 99183

== ENCOUNTER 2023-05-23 09:40 | Emergency (ER) | payer MEDICARE ==
[~2023-05-23 09:40] MED LIST changes: -GADOTERATE 0.5 MMOL/ML (CLARISCAN) 20 ML VIAL IV ONE
--- NOTE | 2023-05-23 10:14 | ED Lower Extremity ---
General Chief Complaint: Lower Extremity Stated Complaint: FALL | LT LEG BRUISE/PAIN Nursing Triage Note: PT TO RM 5 CO OF PAIN AND BRUISING OF L STUMP, STATES ARTIFICIAL LEG DID NOT ATTATCH AND FELL ON SUCTION END W PROTRUSION AND CO OF PAIN 4/10 WHEN PUT LEG ON STATES 8/10 Source: patient History of Present Illness Date Seen by Provider: May 23, 2023 Time Seen by Provider: 09:57 Initial Comments Patient is a 57-year-old male history of below the knee amputation 3 years ago, was wearing his prosthesis yesterday and it was not connected appropriately, he had a fall which impacted the end of the stump on the left. Complains of pain and swelling. No other injury reported. Onset: yesterday Severity: moderate Pain/Injury Location: left leg Method of Injury: fell Modifying Factors: Worse With Movement Allergies and Home Medications Allergies Coded Allergies: fentanyl (Verified Allergy, Unknown, SCRATCHING, 02/07/23) tramadol (Verified Allergy, Unknown, PALPITATIONS, 02/07/23) Patient Home Medication List Home Medication List Reviewed: Yes Atorvastatin Calcium (Atorvastatin Calcium) 80 Mg Tablet, 80 MG PO DAILY, (Reported) Entered as Reported by: MAX TORRES on 01/05/23 1503 Carbamazepine (Carbamazepine ER) 100 Mg Tab.er.12h, 100 MG PO BID, (Reported) Entered as Reported by: MAX TORRES on 01/05/23 1503 Dulaglutide (Trulicity) 3 Mg/0.5 Ml Pen.injctr, 3 MG SQ WEEK, (Reported) Entered as Reported by: MAX TORRES on 01/05/23 1504 Duloxetine HCl (Duloxetine HCl) 30 Mg Capsule.dr, 30 MG PO DAILY, (Reported) Entered as Reported by: MAX TORRES on 01/05/23 1504 Empagliflozin (Jardiance) 10 Mg Tablet, PO DAILY, (Reported) Entered as Reported by: MAX TORRES on 01/05/23 1504 Ezetimibe (Ezetimibe) 10 Mg Tablet, 10 MG PO HS, (Reported) Entered as Reported by: MAX TORRES on 01/05/23 1504 Hydrocodone/Acetaminophen (Hydrocodone-Acetamin 5-325 mg) 5 Mg-325 Mg Tablet, 1 EACH PO Q4H PRN for PAIN-MODERATE (5-7) Prescribed by: JC CARPENTER on 01/12/23 0855 Lisinopril/Hydrochlorothiazide (Lisinopril-Hctz 20-12.5 mg Tab) 20 Mg-12.5 Mg Tablet, 1 EACH PO DAILY, (Reported) Entered as Reported by: MAX TORRES on 01/05/23 150 Metformin HCl (Metformin HCl) 500 Mg Tablet, 500 MG PO BID, (Reported) Entered as Reported by: MAX TORRES on 01/05/23 150 Metoprolol Succinate (Metoprolol Succinate) 25 Mg Tab.er.24h, 25 MG PO DAILY, (R eported) Entered as Reported by: MAX TORRES on 01/05/23 150 Pregabalin (Pregabalin) 200 Mg Capsule, 200 MG PO BID WITH MEALS, (Reported) Entered as Reported by: MAX TORRES on 01/05/23 150 Tamsulosin HCl (Flomax) 0.4 Mg Cap, 0.4 MG PO DAILY, (Reported) Entered as Reported by: MAX TORRES on 01/05/23 150 Terbinafine HCl (Terbinafine HCl) 250 Mg Tablet, 250 MG PO UD, (Reported) Entered as Reported by: MAX TORRES on 01/05/23 150 Timolol Maleate (Timolol Maleate 0.5%) 0.5 % Drops, 1 DROP OP UD, (Reported) Entered as Reported by: MAX TORRES on 01/05/23 1504 Review of Systems Constitutional: see HPI Cardiovascular: no symptoms reported Gastrointestinal: no symptoms reported Genitourinary: no symptoms reported Musculoskeletal: other (pain end of amputation left leg) Past Tttphtr-Fjmppj-Pexnhp Hx Patient Social History Tobacco Use?: No Substance use?: No Alcohol Use?: No Pt feels they are or have been: No Immunizations Up To Date Tetanus Booster (TDap): More than 5yrs First/Initial COVID19 Vaccinat: NONE Second COVID19 Vaccination Kumar: NONE Third COVID19 Vaccination Date: NONE Seasonal Allergies Seasonal Allergies: Yes Past Medical History Surgery/Hospitalization HX: AMP BELOW KNEE AMPT, VASECTOMY, HERNIA, GREAT TOE AMPT R FOOT. DIABETES, HTN, Surgeries: Yes (INGUINAL HERNIA REPAIR, [facility]KA) Abdominal, Amputation, Vasectomy Respiratory: Yes Sleep Apnea Currently Using CPAP: No Currently Using BIPAP: No Cardiac: No High Cholesterol, Hypertension Neurological: Yes (DVA-DEEP VEIN ANOMALY) Headaches /Migraines, Seizure Disorder Sexually Transmitted Disease: No Genitourinary: Yes Kidney Stones Gastrointestinal: Yes (INGUINAL HERNIA) Musculoskeletal: Yes (BACK/NECK) Amputee, Arthritis, Chronic Back Pain Endocrine: Yes Diabetes, Non-Insulin dep HEENT: Yes (ITCHY EARS) Loss of Vision: Denies Hearing Impairment: Hard of Hearing Cancer: No Psychosocial: Yes PTSD Integumentary: No Blood Disorders: No Adverse Reaction/Blood Tranf: No Physical Exam Vital Signs Vital Signs - First Documented 05/23/23 09:49 Temp 36.2 Pulse 64 Resp 16 B/P (MAP) 151/99 (116) Pulse Ox 99 Capillary Refill : Less Than 3 Seconds Height, Weight, BMI Height: '" Weight: lbs. oz. kg; 39.00 BMI Method: General Appearance: WD/WN, no apparent distress Respiratory: no respiratory distress, no accessory muscle use Hips: bilateral hip non-tender, bilateral hip normal inspection, bilateral hip normal range of motion, bilateral hip no evidence of injury Legs: left leg other (left BKA stump site, with swelling and tenderness to palpation. Chronic callus left lateral. No over lying erythema. No evidence of cellullitis or open wounds.) Knees: bilateral knee non-tender, bilateral knee normal inspection, bilateral knee normal range of motion, bilateral knee no evidence of injury Ankles: right ankle non-tender, right ankle normal inspection, right ankle normal range of motion, right ankle no evidence of injury Neurologic/Tendon: normal sensation, normal motor functions Neurologic/Psychiatric: alert, normal mood/affect, oriented x 3 Skin: normal color, warm/dry Progress/Results/Core Measures Results/Orders Vital Signs/I&O 05/23/23 09:49 Temp 36.2 Pulse 64 Resp 16 B/P (MAP) 151/99 (116) Pulse Ox 99 Blood Pressure Mean: 116 Progress Progress Note : Time: 10:17 Progress Note Patient seen and evaluated by me, evaluation today includes physical exam. Pertinent physical exam findings well-developed well-nourished 57-year-old male in no acute distress, stable vital signs. Patient has tenderness and swelling over the distal portion of the left lower extremity at the amputation site. No overlying erythema, skin wounds or signs of cellulitis. He has chronic callus to the lateral aspect of the stump. Differential diagnosis hematoma Vlpll-xb-lwiw ultrasound used to evaluate the stump site. Large collection of fluid noted in the soft tissues of the stump. No loculations appreciated. I believe this is mostly seroma versus hematoma. It is very tender to touch. Recommended ice packs over the next 24 to 48 hours NSAIDs and elevation. Patient is comfortable with plan of care. Patient strongly encouraged to monitor the skin for signs of developing cellulitis and this is described to him and his family member at the bedside. He is agreeable with plan of care. All questions are sought and answered. Patient is stable for discharge Departure Impression Primary Impression: Contusion of leg, left Qualified Codes: S80.12XA - Contusion of left lower leg, initial encounter Additional Impression: Traumatic hematoma Disposition: HOME, SELF-CARE Condition: Stable Departure-Patient Inst. Decision time for Depature: 10:11 Referrals: IAN REZA APRN (PCP/Family) Primary Care Physician Patient Instructions: HEMATOMA Add. Discharge Instructions: Keep the site elevated while at rest to decrease the swelling. Ice packs 20 minutes at a time 4-6 times a day to help reduce swelling as well. Ibuprofen 400-600mg every 6 hours with food as needed for pain. Monitor the site for any signs of redness, increasing swelling/signs of infection. If you notice any of this please return to your primary care for reevaluation and antibiotics. Return to the emergency department for any new, concerning or emergent complaints VICENTE DOOLEY MD May 23, 2023 10:13
[2023-05-23 10:21] VITALS: BP 151/99
== END 2023-05-23 10:21 | disposition home or self-care (01) ==
LOC: EDUNIT# 09:40 → ER 09:41
DX: S80.12XA Contusion of left lower leg, initial encounter (principal); Z89.512 Acquired absence of left leg below knee; Z28.310 Unvaccinated for COVID-19; W18.30XA Fall on same level, unspecified, initial encounter
CPT/HCPCS: 99281

== ENCOUNTER → 2023-05-29 | Outpatient (CLI) | payer MEDICARE | LOC: WOUNDCARE 08:01 | PROVIDERS: ATTEND Family Medicine | DX: T81.31XA Disruption of external operation (surgical) wound, not elsewhere classified, initial encounter (principal); T87.89 Other complications of amputation stump; I96 Gangrene, not elsewhere classified; E11.621 Type 2 diabetes mellitus with foot ulcer; E11.65 Type 2 diabetes mellitus with hyperglycemia; M86.471 Chronic osteomyelitis with draining sinus, right ankle and foot; E66.01 Morbid (severe) obesity due to excess calories; Z68.41 Body mass index [BMI] 40.0-44.9, adult | CPT/HCPCS: 11042; G0463 ==

== ENCOUNTER 2023-05-30 08:00 | Outpatient (RCR) | payer MEDICARE | END 2023-05-30 11:00 | disposition home or self-care (01) | LOC: WOUNDCARE 08:00 | PROVIDERS: ATTEND Family Medicine | DX: E11.621 Type 2 diabetes mellitus with foot ulcer (principal); E11.65 Type 2 diabetes mellitus with hyperglycemia; E66.01 Morbid (severe) obesity due to excess calories; M86.271 Subacute osteomyelitis, right ankle and foot; T87.89 Other complications of amputation stump; T81.31XA Disruption of external operation (surgical) wound, not elsewhere classified, initial encounter; Z68.41 Body mass index [BMI] 40.0-44.9, adult | CPT/HCPCS: 82947; G0277; 99183 ==

== ENCOUNTER → 2023-06-02 | Outpatient (CLI) | payer MEDICARE ==
--- NOTE | 2023-06-02 17:40 | Diagnostic Imaging Report ---
HISTORY: Pain in the left femur. TECHNIQUE: Two views of the left femur. COMPARISON: None. FINDINGS: No acute fracture is seen in the left femur. Alignment appears normal. There is mild degenerative change in the left knee. There is a small left knee joint effusion. There is a hkbnc-qew-ffym amputation. IMPRESSION: 1. No acute osseous abnormalities seen in the left femur. 2. Mild degenerative change in the left knee with a small joint effusion. Dictated by: Dictated on workstation # [id number]
--- NOTE | 2023-06-02 17:40 | Diagnostic Imaging Report ---
INDICATION: Left knee pain AP, oblique, and lateral views of the left knee are obtained. Patient has had previous left below the knee amputation. The tibial and fibular stump are each intact with no erosive bony lesion or acute fracture. There is perhaps a minimal joint effusion. IMPRESSION: Status post left below the knee amputation. No erosive bony lesion or acute fracture. Questionable small joint effusion. Dictated by: Dictated on workstation # [id number]
== END ==
LOC: RAD 11:20
PROVIDERS: ATTEND Nurse Practitioner Family
DX: M17.12 Unilateral primary osteoarthritis, left knee (principal); M25.462 Effusion, left knee; Z89.512 Acquired absence of left leg below knee
CPT/HCPCS: 73552; 73562

== ENCOUNTER → 2023-06-06 | Outpatient (CLI) | payer MEDICARE | LOC: WOUNDCARE 08:32 | PROVIDERS: ATTEND Family Medicine | DX: T87.89 Other complications of amputation stump (principal); E11.621 Type 2 diabetes mellitus with foot ulcer; L97.509 Non-pressure chronic ulcer of other part of unspecified foot with unspecified severity; E11.65 Type 2 diabetes mellitus with hyperglycemia; E66.01 Morbid (severe) obesity due to excess calories; Z68.41 Body mass index [BMI] 40.0-44.9, adult; M86.271 Subacute osteomyelitis, right ankle and foot; T81.31XA Disruption of external operation (surgical) wound, not elsewhere classified, initial encounter; E11.52 Type 2 diabetes mellitus with diabetic peripheral angiopathy with gangrene; I96 Gangrene, not elsewhere classified | CPT/HCPCS: 99213 ==

== ENCOUNTER → 2023-06-19 | Outpatient (CLI) | payer MEDICARE ==
[2023-06-19 10:43] LABS: POTASSIUM 4.2 MMOL/L (3.6-5.0)
[2023-06-19 10:44] LABS: CALCIUM 9.2 MG/DL (8.5-10.1)
[2023-06-19 10:48] LABS: CREATININE SERUM 1.32 MG/DL (0.60-1.30)
== END ==
LOC: WOUNDCARE 09:58
PROVIDERS: ATTEND Family Medicine
DX: T81.31XA Disruption of external operation (surgical) wound, not elsewhere classified, initial encounter (principal); T87.89 Other complications of amputation stump; I96 Gangrene, not elsewhere classified; E11.621 Type 2 diabetes mellitus with foot ulcer; E11.65 Type 2 diabetes mellitus with hyperglycemia; M86.271 Subacute osteomyelitis, right ankle and foot; E66.01 Morbid (severe) obesity due to excess calories; Z68.41 Body mass index [BMI] 40.0-44.9, adult
CPT/HCPCS: 11042; 80048; 83036; G0463; 36415

== ENCOUNTER → 2023-06-26 | Outpatient (CLI) | payer MEDICARE ==
[~2023-06-26] MED LIST changes: +TIRZ7.5P SQ
== END ==
LOC: WOUNDCARE 09:56
PROVIDERS: ATTEND Family Medicine
DX: E11.621 Type 2 diabetes mellitus with foot ulcer (principal); E11.65 Type 2 diabetes mellitus with hyperglycemia; E66.01 Morbid (severe) obesity due to excess calories; T87.89 Other complications of amputation stump; M86.271 Subacute osteomyelitis, right ankle and foot; T81.31XA Disruption of external operation (surgical) wound, not elsewhere classified, initial encounter; E11.52 Type 2 diabetes mellitus with diabetic peripheral angiopathy with gangrene; Z68.41 Body mass index [BMI] 40.0-44.9, adult
CPT/HCPCS: 99213

== ENCOUNTER → 2023-06-26 | Outpatient (CLI) | payer MEDICARE ==
[~2023-06-26] VITALS: Ht 172.7 cm; Wt 112.4 kg
== END | disposition home or self-care (01) ==
LOC: PREOP 05:31
PROVIDERS: ATTEND Surgery
DX: Z01.818 Encounter for other preprocedural examination (principal)

== ENCOUNTER 2023-06-30 10:05 | Day surgery (SDC) | payer MEDICARE ==
[~2023-06-30] VITALS: Ht 172.7 cm; Wt 112.4 kg
[2023-06-30] VITALS (10 sets, daily range): BP systolic 90–135; BP diastolic 48–78
[2023-06-30] MEDS ORDERED: ceFAZolin INJECTION 2,000 MG in NS (IVPB) 50 ML 50 ML IV ONE ×2 (10:30→11:30)
[2023-06-30] MEDS: LACTATED RINGERS 1,000 ML 1,000 ML IV PRN ×2 (10:51→13:52)
--- NOTE | 2023-06-30 11:28 | Progress Note-Pre Operative ---
Pre-Operative Progress Note Date H&P Reviewed: Jun 30, 2023 Time H&P Reviewed: 11:28 History & Physical: H&P Reviewed, Patient Examed, No changes noted Pre-Operative Diagnosis: open wound right foot JC CARPENTER DO Jun 30, 2023 11:28
[2023-06-30] MEDS ORDERED: LIDOCAINE 2% w/EPI 1:100,000 20 ML VIAL INJ ONE (11:45)
[2023-06-30] MEDS ORDERED: morphine INJ 10 MG/ML 1ML (SYR OR VIAL) IVP ONE ×2 (14:15)
[2023-06-30] MEDS ORDERED: ONDANSETRON INJECTION 4 MG/2 ML (SDV) IVP PRN (14:15)
[2023-06-30] MEDS ORDERED: MEPERIDINE INJ 50 MG/ML VIAL IVP ONE ×2 (14:15)
--- NOTE | 2023-06-30 14:15 | Anesthesia-General Post-Op ---
General Patient Condition Mental Status/LOC: Same as Preop Cardiovascular: Satisfactory Nausea/Vomiting: Absent Respiratory: Satisfactory Pain: Controlled Complications: Absent Post Op Complications Complications None Follow Up Care/Instructions Patient Instructions None needed. Anesthesia/Patient Condition Patient Condition Patient is doing well, no complaints, stable vital signs, no apparent adverse anesthesia problems. No complications reported per nursing. BRITTON ALVAREZ CRNA Jun 30, 2023 14:15
--- NOTE | 2023-06-30 14:18 | Discharge Inst-Simple/Standard ---
Discharge Inst-Standard Patient Instructions/Follow Up Plan of Care/Instructions/FU: Wound care at regular Monday appointment. Sherrill 1 week. Activity as Tolerated: No Discharge Diet: Regular Diet Other Inst to Patient Follow up Appt: Wound care monday at regular appointment. Make appointment for 1 week. Instructions: No strenuous activity. May shower in 24 hours, no tub bath or soaking. Use incentive spirometer at home as directed. No Smoking Skin/Wound Care: Irrigate and pack wound with iodoform gauze on daily and as needed basis. Symptoms to Report: Appetite Changes, Extremity Discoloration, Numbness/Tingling, Swelling Increased, Bleeding Excessive, Eyesight Changes, Pain Increased, Urine Color Change, Constipation(Persistent), Fever over 101 degree F, Pain/Pressure in chest, Urinating Difficulty, Cough Up/Vomit Blood, Heart Beat Irreg/Pounding, Pain/Pressure in jaw, Vaginal Bleeding Increase, Cramps in feet or legs, Lightheadedness, Pain/Pressure in shoulder, Diarrhea(Persistent), Memory Changes Suddenly, Questions/Concerns, Weight gain consecutive days, Dizziness/Fainting, Nausea/Vomiting, Shortness of Breath, Weight gain over 2 pounds If questions or concerns contact your physician Or seek help at emergency department. JC CARPENTER DO Jun 30, 2023 14:18
--- NOTE | 2023-07-01 02:51 | OPERATIVE REPORT ---
DATE OF SERVICE: 06/30/2023 PREOPERATIVE DIAGNOSIS: Open wound, right foot. POSTOPERATIVE DIAGNOSIS: Open wound, right foot. PROCEDURE: Right foot wound debridement 2.8 x 1.7 x 1.5, removing skin and subcutaneous tissue by sharp and cautery dissection, and bone biopsy of the first metatarsal of the right foot. SURGEON: Jc Mccartney DO ANESTHESIA: General. ESTIMATED BLOOD LOSS: Minimal. COMPLICATIONS: None. INDICATIONS: The patient is a 57-year-old male with previous amputation of the right great toe and partial metatarsal. The patient has poor healing and has been requested that a bone biopsy be performed and also further debridement. The patient understands risks and benefits of procedure and wished to proceed. Consent was signed in chart. DESCRIPTION OF PROCEDURE: The patient was taken to the operating suite, prepped and draped in sterile fashion. Timeout was performed using sharp and cautery dissection. The skin and subcutaneous tissue was removed measuring 2.8 x 1.7 x 1.5 cm. Once bone was encountered, a rongeur was used to take bone biopsies and also sent for culture. The wound was then irrigated with copious amounts of irrigation and then packed with iodoform gauze. The area was washed and dried and sterile bandages were applied. The patient tolerated the procedure well without complications, taken to recovery room in stable condition. RECOMMENDATIONS: The patient will continue with wound care and followup with myself. Job ID: [id number] DocumentID: [id number] Dictated Date: 06/30/2023 19:26:18 [employer] Car Mechanic Date: 07/01/2023 02:49:00 Dictated By: JC MCCARTNEY DO
== END 2023-06-30 17:00 | disposition home or self-care (01) ==
LOC: SDC 10:05
PROVIDERS: ATTEND Surgery
DX: S91.301A Unspecified open wound, right foot, initial encounter (principal); E11.69 Type 2 diabetes mellitus with other specified complication; M86.671 Other chronic osteomyelitis, right ankle and foot; G47.33 Obstructive sleep apnea (adult) (pediatric)
CPT/HCPCS: 87070; 87075; 87077; 87081; 87205

== ENCOUNTER → 2023-07-03 | Outpatient (CLI) | payer MEDICARE | LOC: WOUNDCARE 10:00 | PROVIDERS: ATTEND Family Medicine | DX: T87.89 Other complications of amputation stump (principal); E11.621 Type 2 diabetes mellitus with foot ulcer; E11.65 Type 2 diabetes mellitus with hyperglycemia; E66.01 Morbid (severe) obesity due to excess calories; Z68.41 Body mass index [BMI] 40.0-44.9, adult; M86.271 Subacute osteomyelitis, right ankle and foot; T81.31XA Disruption of external operation (surgical) wound, not elsewhere classified, initial encounter; E11.52 Type 2 diabetes mellitus with diabetic peripheral angiopathy with gangrene; I96 Gangrene, not elsewhere classified | CPT/HCPCS: 99213 ==

== ENCOUNTER → 2023-07-10 | Outpatient (CLI) | payer MEDICARE | LOC: WOUNDCARE 09:57 | PROVIDERS: ATTEND Family Medicine | DX: T87.89 Other complications of amputation stump (principal); E11.621 Type 2 diabetes mellitus with foot ulcer; E11.65 Type 2 diabetes mellitus with hyperglycemia; E66.01 Morbid (severe) obesity due to excess calories; Z68.41 Body mass index [BMI] 40.0-44.9, adult; T81.31XA Disruption of external operation (surgical) wound, not elsewhere classified, initial encounter; A49.9 Bacterial infection, unspecified; E11.52 Type 2 diabetes mellitus with diabetic peripheral angiopathy with gangrene; I96 Gangrene, not elsewhere classified; L97.509 Non-pressure chronic ulcer of other part of unspecified foot with unspecified severity | CPT/HCPCS: 11042; G0463; L4360 ==

== ENCOUNTER → 2023-07-17 | Outpatient (CLI) | payer MEDICARE | LOC: WOUNDCARE 09:44 | PROVIDERS: ATTEND Family Medicine | DX: T81.31XA Disruption of external operation (surgical) wound, not elsewhere classified, initial encounter (principal); T87.89 Other complications of amputation stump; I96 Gangrene, not elsewhere classified; E11.621 Type 2 diabetes mellitus with foot ulcer; E11.65 Type 2 diabetes mellitus with hyperglycemia; E66.01 Morbid (severe) obesity due to excess calories; Z68.41 Body mass index [BMI] 40.0-44.9, adult | CPT/HCPCS: 11042; G0463 ==

== ENCOUNTER → 2023-07-25 | Outpatient (CLI) | payer MEDICARE | LOC: WOUNDCARE 08:21 | PROVIDERS: ATTEND Family Medicine | DX: E11.621 Type 2 diabetes mellitus with foot ulcer (principal); E11.65 Type 2 diabetes mellitus with hyperglycemia; E66.01 Morbid (severe) obesity due to excess calories; T81.31XA Disruption of external operation (surgical) wound, not elsewhere classified, initial encounter; T87.89 Other complications of amputation stump; Z68.41 Body mass index [BMI] 40.0-44.9, adult; E11.52 Type 2 diabetes mellitus with diabetic peripheral angiopathy with gangrene | CPT/HCPCS: 11042; G0463 ==

== ENCOUNTER → 2023-07-31 | Outpatient (CLI) | payer MEDICARE | LOC: WOUNDCARE 09:59 | PROVIDERS: ATTEND Family Medicine | DX: T81.31XA Disruption of external operation (surgical) wound, not elsewhere classified, initial encounter (principal); I96 Gangrene, not elsewhere classified; T87.89 Other complications of amputation stump; E11.621 Type 2 diabetes mellitus with foot ulcer; E11.65 Type 2 diabetes mellitus with hyperglycemia; E66.01 Morbid (severe) obesity due to excess calories; R60.0 Localized edema; Z68.41 Body mass index [BMI] 40.0-44.9, adult | CPT/HCPCS: 11042; G0463 ==